=== PATIENT | male | born 1955 | race Caucasian/White ===

== ENCOUNTER 2020-01-23 10:52 | Emergency (ER) | payer MEDICARE, BC ==
[~2020-01-23] VITALS: Ht 175.3 cm; Wt 117.9 kg
[~2020-01-23 10:52] MED LIST: ASPI81CH PO; ASPI81EC; LOSA50 PO; LOSARTAN; LOSHYD100 PO; LOVASTATIN; METOPROLOL PO
[2020-01-23 11:30] LABS: Calcium, Ionized (POC) 1.09 mmol/L (1.10-1.46); Chloride (POC) 105 mmol/L (98-108); Creatinine (POC) 0.8 mg/dL (0.8-1.3); Glucose (ISTAT POC) 168 mg/dL (70-99); Hemoglobin (POC) 16.3 g/dL (13.5-17.5); Potassium (POC) 3.9 mmol/L (3.5-5.5); Sodium (POC) 138 mmol/L (135-148); Total CO2 (POC) 18 mmol/L (21-32)
[2020-01-23 11:44] LABS: BASOPHILS ABSOLUTE AUTO 0.07 K/mm3 (0.00-0.23); BASOPHILS PERCENT AUTO 1 % (0-2); EOSINOPHILS PERCENT AUTO 3 % (0-6); Hematocrit 48.1 % (37.0-53.0); Hemoglobin 16.5 g/dL (13.5-17.5); IMMATURE GRAN ABSOLUTE AUTO 0.04 K/mm3 (0.00-0.10); IMMATURE GRAN PERCENT AUTO 1 % (0-1); LYMPHOCYTES ABSOLUTE AUTO 2.31 K/mm3 (0.84-5.20); LYMPHOCYTES PERCENT AUTO 29 % (21-46); MONOCYTES ABSOLUTE AUTO 0.74 K/mm3 (0.16-1.47); MONOCYTES PERCENT AUTO 9 % (4-13); Mean Corpuscular HGB 31.4 pg (26.0-34.0); Mean Corpuscular HGB Conc 34.3 g/dL (31.5-36.5); Mean Corpuscular Volume 91 fL (80-100); NEUTROPHILS ABSOLUTE AUTO 4.69 K/mm3 (1.96-9.15); NEUTROPHILS PERCENT AUTO 58 % (41-73); Platelet Count 261 K/mm3 (150-400); RDW Coefficient Variation 12.6 % (11.7-14.2); RDW Standard Deviation 42.3 fL (35.1-46.3); Red Blood Cell Count 5.26 M/mm3 (4.30-5.90); White Blood Cell Count 8.05 K/mm3 (4.00-11.30)
[2020-01-23 12:05] LABS: Alanine Aminotransfer (ALT/SGP 45 U/L (12-78); Albumin, Blood 3.7 g/dL (3.4-5.0); Alk Phos 66 U/L (50-136); Anion Gap 9 mmol/L (6-16); Aspartate Aminotrans (AST/SGOT 28 U/L (12-37); Bilirubin, Total 0.5 mg/dL (0.1-1.0); Blood Urea Nitrogen 21 mg/dL (8-24); Bun/Creatinine Ratio 25.2 (12.0-20.0); CO2, Blood 22 mmol/L (21-32); Calcium, Blood 8.8 mg/dL (8.5-10.1); Chloride, Blood 109 mmol/L (98-108); Creatinine, Blood 0.83 mg/dL (0.60-1.20); Globulin, Blood 3.6 g/dL (2.2-4.0); Glomerular Filtration Rate >60 (60-); Glucose, Blood 163 mg/dL (70-99); Potassium, Blood 3.9 mmol/L (3.5-5.5); Sodium, Blood 140 mmol/L (136-145); Total Protein, Blood 7.3 g/dL (6.4-8.2)
[2020-01-23] MEDS ORDERED: MELO7.5 PO (12:41)
[2020-01-23] MEDS ORDERED: OMEP20ER PO (12:41)
[2020-01-23] MEDS ORDERED: ATOR80 PO (12:41)
[2020-01-23] MEDS ORDERED: EZET10 PO (12:41)
[2020-01-23] MEDS ORDERED: FLUT.05NI (12:42)
[2020-01-23] MEDS ORDERED: OTEZLA30 MG PO (12:42)
[2020-01-23 12:53] LABS: Source, Urine Clean Catch
[2020-01-23 12:57] LABS: Bilirubin, Urine Neg (Neg); Blood, Urine 5+ (Neg); Glucose Qualitative, Urine Neg (Neg); Ketones, Urine Neg (Neg); Leukocyte Esterase, Urine 1+ (Neg); Nitrite, Urine Neg (Neg); Protein, Urine 2+ (Neg); Specific Gravity, Urine 1.005 (1.003-1.022); Urobilinogen, Urine NORM (Normal)
[2020-01-23 13:05] LABS: Appearance, Urine Clear (Clear); Color, Urine Yellow (P-Yellow)
[2020-01-23 13:07] LABS: Bacteria Few /hpf; Red Blood Cells, Urine TNTC /hpf (0-2); Squamous Epithelial Cells Not Seen /hpf (Few)
[2020-01-23] MEDS ORDERED: Percocet 5-3251 EACH PO (13:33)
[2020-01-23] MEDS ORDERED: ONDA4ODT MM (13:33)
[2020-01-23] MEDS ORDERED: Flomax0.4 MG PO (13:33)
== END 2020-01-23 14:08 | disposition home or self-care (01) ==
LOC: ER 10:52
PROVIDERS: Physician Assistant
DX: N13.2 Hydronephrosis with renal and ureteral calculous obstruction (principal); I10 Essential (primary) hypertension; E78.5 Hyperlipidemia, unspecified; I25.10 Atherosclerotic heart disease of native coronary artery without angina pectoris; Z79.899 Other long term (current) drug therapy; Z79.82 Long term (current) use of aspirin
CPT/HCPCS: 74177; 80047; 80053; 81001; 83690; 85014; 85025; 87086; 93005; 93010; 96374-59; 96375-59; 99284-25; J1170; J2405; Q9967

== ENCOUNTER 2020-02-04 00:26 | Emergency (ER) | payer MEDICARE, BC ==
[~2020-02-04 00:26] MED LIST changes: +ATOR80 PO; +CEPH500 PO; +EZET10 PO; +FLUT.05NI; +Flomax0.4 MG PO; +MELO7.5 PO; +OMEP20ER PO; +ONDA4ODT MM; +OTEZLA30 MG PO; +Percocet 5-3251 EACH PO
== END 2020-02-04 00:46 | disposition left against medical advice (07) ==
LOC: ER 00:26
DX: Z53.21 Procedure and treatment not carried out due to patient leaving prior to being seen by health care provider (principal)

== ENCOUNTER 2023-09-22 21:39 | Emergency (ER) | payer MEDICARE ==
[~2023-09-22] VITALS: Ht 177.8 cm; Wt 99.8 kg
[2023-09-22 22:36] LABS: BASOPHILS PERCENT AUTO 1 % (0-2); EOSINOPHILS ABSOLUTE AUTO 0.64 K/mm3 (0.00-0.68); EOSINOPHILS PERCENT AUTO 8 % (0-6); Hematocrit 47.5 % (37.0-53.0); Hemoglobin 16.3 g/dL (13.5-17.5); IMMATURE GRAN ABSOLUTE AUTO 0.02 K/mm3 (0.00-0.10); IMMATURE GRAN PERCENT AUTO 0 % (0-1); LYMPHOCYTES PERCENT AUTO 37 % (21-46); MONOCYTES ABSOLUTE AUTO 0.69 K/mm3 (0.16-1.47); MONOCYTES PERCENT AUTO 8 % (4-13); Mean Corpuscular HGB 31.9 pg (26.0-34.0); Mean Corpuscular HGB Conc 34.3 g/dL (31.5-36.5); Mean Corpuscular Volume 93 fL (80-100); Mean Platelet Volume 9.5 fL (9.1-12.4); NEUTROPHILS ABSOLUTE AUTO 3.94 K/mm3 (1.96-9.15); NEUTROPHILS PERCENT AUTO 47 % (41-73); Platelet Count 236 K/mm3 (150-400); RDW Coefficient Variation 12.8 % (11.7-14.2); Red Blood Cell Count 5.11 M/mm3 (4.30-5.90); White Blood Cell Count 8.49 K/mm3 (4.00-11.30)
[2023-09-22 23:00] VITALS: BP 113/70
[2023-09-22 23:06] LABS: Albumin, Blood 3.6 g/dL (3.4-5.0); Bilirubin, Total 0.3 mg/dL (0.1-1.0); Calcium, Blood 8.9 mg/dL (8.5-10.1); Creatinine, Blood 1.06 mg/dL (0.60-1.20); Globulin, Blood 3.6 g/dL (2.2-4.0); Total Protein, Blood 7.2 g/dL (6.4-8.2)
== END 2023-09-23 02:20 | disposition home or self-care (01) ==
LOC: ER 21:39
PROVIDERS: Student in an Organized Health Care Education/Training Program
DX: F10.929 Alcohol use, unspecified with intoxication, unspecified (principal); Y90.8 Blood alcohol level of 240 mg/100 ml or more; I10 Essential (primary) hypertension; E78.5 Hyperlipidemia, unspecified; Z79.82 Long term (current) use of aspirin; I25.10 Atherosclerotic heart disease of native coronary artery without angina pectoris; Z79.899 Other long term (current) drug therapy
CPT/HCPCS: 70450; 71045; 80053; 83880; 84484; 85025; 93005; 93010; 99285-25

== ENCOUNTER → 2023-12-21 | Outpatient (CLI) | payer MEDICARE, OTHER | END | disposition home or self-care (01) | LOC: LAB SHORT 15:51 → LAB 15:51 | DX: R23.8 Other skin changes (principal); R23.4 Changes in skin texture | CPT/HCPCS: 88305; 88312 ==

== ENCOUNTER 2025-02-07 16:14 | Emergency (ER) | payer MEDICARE, OTHER ==
[~2025-02-07] VITALS: Ht 175.3 cm; Wt 95.2 kg
[2025-02-07] MEDS ORDERED: Ondansetron HCl 2 MG / ML 2ML Vial IV ONE (16:30)
[2025-02-07 16:48] LABS: BASOPHILS ABSOLUTE AUTO 0.09 K/mm3 (0.00-0.23); BASOPHILS PERCENT AUTO 1 % (0-2); EOSINOPHILS ABSOLUTE AUTO 0.51 K/mm3 (0.00-0.68); EOSINOPHILS PERCENT AUTO 5 % (0-6); Hematocrit 50.2 % (37.0-53.0); IMMATURE GRAN ABSOLUTE AUTO 0.03 K/mm3 (0.00-0.10); IMMATURE GRAN PERCENT AUTO 0 % (0-1); LYMPHOCYTES ABSOLUTE AUTO 3.12 K/mm3 (0.84-5.20); LYMPHOCYTES PERCENT AUTO 28 % (21-46); MONOCYTES ABSOLUTE AUTO 1.13 K/mm3 (0.16-1.47); MONOCYTES PERCENT AUTO 10 % (4-13); Mean Corpuscular HGB 30.7 pg (26.0-34.0); Mean Corpuscular HGB Conc 33.9 g/dL (31.5-36.5); Mean Corpuscular Volume 91 fL (80-100); Mean Platelet Volume 9.8 fL (9.1-12.4); NEUTROPHILS ABSOLUTE AUTO 6.38 K/mm3 (1.96-9.15); NEUTROPHILS PERCENT AUTO 57 % (41-73); Platelet Count 301 K/mm3 (150-400); RDW Coefficient Variation 13.2 % (11.7-14.2); RDW Standard Deviation 44.4 fL (35.1-46.3); Red Blood Cell Count 5.53 M/mm3 (4.30-5.90); White Blood Cell Count 11.26 K/mm3 (4.00-11.30)
[2025-02-07 17:16] LABS: Albumin, Blood 4.1 g/dL (3.4-5.0); Albumin/Globulin Ratio 1.2 (0.8-1.8); Bilirubin, Total 0.7 mg/dL (0.1-1.0); Bun/Creatinine Ratio 16.5 (12.0-20.0); Calcium, Blood 9.6 mg/dL (8.5-10.1); Creatinine, Blood 1.03 mg/dL (0.60-1.20); Globulin, Blood 3.5 g/dL (2.2-4.0); Potassium, Blood 3.9 mmol/L (3.5-5.5); Total Protein, Blood 7.6 g/dL (6.4-8.2)
[2025-02-07 18:25] LABS: Source, Urine Clean Catch
[2025-02-07] MEDS ORDERED: Morphine Sulfate 4 MG/1 ML Injection IV ONE (18:30)
[2025-02-07 18:42] LABS: Appearance, Urine Hazy (Clear); Bilirubin, Urine Neg (Neg); Blood, Urine 5+ (Neg); Color, Urine Yellow (P-Yellow); Glucose Qualitative, Urine Neg (Neg); Ketones, Urine Neg (Neg); Leukocyte Esterase, Urine Neg (Neg); Nitrite, Urine Neg (Neg); Protein, Urine 1+ (Neg); Urobilinogen, Urine NORM (Normal)
[2025-02-07] MEDS ORDERED: Ketorolac Tromethamine 15mg Vial IV ONE (19:00)
[2025-02-07] MEDS ORDERED: Tamsulosin HCl 0.4 MG Cap PO ONE (19:00)
[2025-02-07 19:04] LABS: Bacteria Mod /hpf; Red Blood Cells, Urine TNTC /hpf (0-2); Squamous Epithelial Cells Rare /hpf (Few); White Blood Cells, Urine 0-2 /hpf (0-5)
[2025-02-07 19:05] LABS: Mucus Light (0-Heavy)
[2025-02-07] MEDS ORDERED: ONDA4 PO (19:50)
[2025-02-07] MEDS ORDERED: IBUP600 PO (19:50)
[2025-02-07] MEDS ORDERED: FLOMAX0.4 MG PO (19:50)
[2025-02-07] MEDS ORDERED: ACET500 PO (19:50)
[2025-02-07] MEDS ORDERED: PERCOCET 10-321 EA13 PO (19:50)
[2025-02-07 20:00] VITALS: BP 125/68
[2025-02-07] MEDS ORDERED: RX Prepack 6 Tabs Oxycodone 5mg UD ONE (20:20)
== END 2025-02-07 20:24 | disposition home or self-care (01) ==
LOC: ER 16:14
PROVIDERS: Physician Assistant
DX: N13.2 Hydronephrosis with renal and ureteral calculous obstruction (principal); I10 Essential (primary) hypertension; E78.5 Hyperlipidemia, unspecified; I25.2 Old myocardial infarction; Z79.82 Long term (current) use of aspirin
CPT/HCPCS: 74177; 76857; 76870; 80053; 81001; 85025; 87086; 96374-59; 99284-25; A9270; J2405; Q9967